=== PATIENT | female | born 1960 | race Caucasian/White ===

== ENCOUNTER 2017-04-23 03:28 | Emergency (ER) | payer MEDICAID ==
[~2017-04-23] VITALS: Ht 157.5 cm; Wt 55.5 kg
[~2017-04-23 03:28] MED LIST: ALBU18HF2 INH; BUSP5TAB3 PO; DULO-31 PO; ESTR1TAB19 PO; GABA600T2 PO; HYDR-565 PO; LORA0.5T PO; MEDR2.5T PO; NABU500T2 PO
[2017-04-23] MEDS ORDERED: ondansetron/PF 4mg/2ml inj IV ONE (03:45)
[2017-04-23] MEDS ORDERED: normal saline 1000ML IV soln IVB ONE (03:45)
[2017-04-23 04:16] LABS: BASOPHILS # (AUTO) 0.1 X10'3 (0-0.2); BASOPHILS % (AUTO) 0.7 % (0-1); EOSINOPHILS # (AUTO) 0.1 X10'3 (0-0.9); EOSINOPHILS % (AUTO) 1.2 % (0-6); HEMATOCRIT 43.4 % (35.0-45.0); LYMPHOCYTES # (AUTO) 0.7 X10'3 (1.1-4.8); LYMPHOCYTES % (AUTO) 6.9 % (21-51); MEAN CORPUSCULAR HEMOGLOBIN 31.4 PG (27.0-31.0); MEAN CORPUSCULAR HGB CONC 34.5 % (33.0-36.5); MEAN PLATELET VOLUME 8.7 FL (7.4-10.4); MONOCYTES # (AUTO) 0.2 X10'3 (0-0.9); MONOCYTES % (AUTO) 2.4 % (2-12); NEUTROPHILS # (AUTO) 8.6 X10'3 (1.8-7.7); NEUTROPHILS % (AUTO) 88.8 % (42-75); PLATELET COUNT 238 X10'3 (140-440); RED BLOOD COUNT 4.77 X10'6 (4.20-5.60); RED CELL DISTRIBUTION WIDTH 13.1 % (11.5-14.5); WHITE BLOOD COUNT 9.7 X10'3 (4.5-11.0)
[2017-04-23 04:29] LABS: ALANINE AMINOTRANSFERASE 28 U/L (12-78); ALBUMIN 4.3 G/DL (3.4-5.0); ALBUMIN/GLOBULIN RATIO 1.2 (1.1-1.5); ALKALINE PHOSPHATASE 40 IU/L (46-116); ANION GAP 15 (8-16); ASPARTATE AMINO TRANSFERASE 28 U/L (10-37); BILIRUBIN,TOTAL 0.7 MG/DL (0.1-1.0); BLOOD UREA NITROGEN 17 MG/DL (7-18); BUN/CREATININE RATIO 23.9 (6.6-38.0); CALCIUM 9.6 MG/DL (8.5-10.1); CHLORIDE 103 MMOL/L (99-107); CREATININE 0.71 MG/DL (0.40-0.90); GLUCOSE 160 MG/DL (70-104); LIPASE 82 U/L (73-393); SODIUM 142 MMOL/L (135-145); TOTAL CARBON DIOXIDE 23.9 MMOL/L (24-32); eGFR 85 ML/MIN
[2017-04-23 04:30] LABS: POTASSIUM 3.6 MMOL/L (3.5-5.1)
[2017-04-23] MEDS ORDERED: ketorolac trometh. 30mg/ml inj. IV ONE (06:20)
[2017-04-23 06:59] LABS: CLARITY,URINE CLEAR (Clear); COLOR,URINE YELLOW (Yellow); GLUCOSE, URINE 100 mg/dl (Neg); KETONES,URINE >=80 mg/dl (Neg); LEUKOCYTE ESTERASE ,URINE NEGATIVE (Neg); NITRITES, URINE NEGATIVE (Neg); OCCULT BLOOD,URINE NEGATIVE (Neg); PH,URINE 8.5 (4.8-8.0); PROTEIN,URINE TRACE mg/dl (Neg); UA COLLECTION TYPE CLN CATCH MIDSTREAM; UROBILINOGEN,URINE 0.2 E.U/dL (0.2-1.0)
[2017-04-23 07:00] LABS: URINE HCG NEGATIVE (NEG)
[2017-04-23 07:25] LABS: RBC,URINE NONE SEEN /HPF (0-2); WBC,URINE NONE SEEN /HPF (0-4)
[2017-04-23 07:26] LABS: BACTERIA,URINE FEW /HPF (Neg); MUCUS STRANDS NONE SEEN /LPF (Neg); SQUAMOUS EPITHELIAL CELL,UR FEW /LPF (FEW)
[2017-04-23 07:34] LABS: HEMOGLOBIN A1C 4.9 % (4.5-6.2)
[2017-04-23] MEDS ORDERED: ONDA4TAB9 PO (08:06)
[2017-04-23 08:27] VITALS: BP 146/90
== END 2017-04-23 08:30 | disposition home or self-care (01) ==
LOC: ER 03:28
DX: K52.9 Noninfective gastroenteritis and colitis, unspecified (principal); R73.9 Hyperglycemia, unspecified; G89.29 Other chronic pain; F17.200 Nicotine dependence, unspecified, uncomplicated; M19.90 Unspecified osteoarthritis, unspecified site; Z86.14 Personal history of Methicillin resistant Staphylococcus aureus infection; Z56.0 Unemployment, unspecified; Z88.0 Allergy status to penicillin; Z88.2 Allergy status to sulfonamides; Z79.899 Other long term (current) drug therapy
CPT/HCPCS: 36415; 74176; 80053; 81001; 81025; 83036; 83690; 85025; 96374; 96375; 99285; J1885; J2405; J7030

== ENCOUNTER 2018-02-04 12:34 | Emergency (ER) | payer MEDICAID ==
[~2018-02-04] VITALS: Ht 160 cm; Wt 56.4 kg
[~2018-02-04 12:34] MED LIST changes: +HYDR-4353 PO; -HYDR-565 PO
[2018-02-04 12:51] VITALS: BP 119/79
[2018-02-04] MEDS ORDERED: HYDROcodone/acetaminophen 10/325mg tab PO ONE (13:10)
[2018-02-04] MEDS ORDERED: ONDA4TAB9 SL (13:44)
[2018-02-04] MEDS ORDERED: ondansetron 4mg rapidly disintigrating tab PO ONE (13:45)
== END 2018-02-04 13:58 | disposition home or self-care (01) ==
LOC: ER 12:34
DX: M79.7 Fibromyalgia (principal); G89.29 Other chronic pain; F41.9 Anxiety disorder, unspecified; F32.9 Major depressive disorder, single episode, unspecified; M19.90 Unspecified osteoarthritis, unspecified site; Z76.0 Encounter for issue of repeat prescription; Z88.2 Allergy status to sulfonamides; Z88.0 Allergy status to penicillin; Z86.14 Personal history of Methicillin resistant Staphylococcus aureus infection; Z56.0 Unemployment, unspecified
CPT/HCPCS: 99283

== ENCOUNTER 2018-05-12 09:31 | Inpatient (IN) | payer MEDICAID ==
[~2018-05-12] VITALS: Ht 160 cm; Wt 59.1 kg
[~2018-05-12 09:31] MED LIST changes: +GABA600T13 PO; -GABA600T2 PO
[2018-05-12] MEDS ORDERED: normal saline 1000ML IV soln IV ONE (10:00)
[2018-05-12] MEDS ORDERED: vancomycin/NS 1 GM ADD-VANTAGE 250 ML IV ONE (10:00)
[2018-05-12] MEDS ORDERED: CefTRIAXone 2gm/D5W 50ml 50 ML IV ONE (10:00)
[2018-05-12] MEDS ORDERED: morphine 4 MG/ML inj SYRINge IV ONE (10:25)
[2018-05-12 10:30] LABS: BASOPHILS # (AUTO) 0.1 X10'3 (0-0.2); BASOPHILS % (AUTO) 0.6 % (0-1); EOSINOPHILS % (AUTO) 0.3 % (0-6); HEMOGLOBIN 14.4 g/dl (12.0-16.0); LYMPHOCYTES # (AUTO) 1.3 X10'3 (1.1-4.8); MEAN CORPUSCULAR HEMOGLOBIN 30.7 PG (27.0-31.0); MEAN CORPUSCULAR HGB CONC 33.6 g/dL (33.0-36.5); MEAN CORPUSCULAR VOLUME 91.5 FL (78-98); MEAN PLATELET VOLUME 8.4 FL (7.4-10.4); MONOCYTES % (AUTO) 9.2 % (2-12); NEUTROPHILS # (AUTO) 8.6 X10'3 (1.8-7.7); NEUTROPHILS % (AUTO) 77.9 % (42-75); PLATELET COUNT 234 X10'3 (140-440); RED BLOOD COUNT 4.69 X10'6 (4.20-5.60); RED CELL DISTRIBUTION WIDTH 12.8 % (11.5-14.5); WHITE BLOOD COUNT 11.1 X10'3 (4.5-11.0)
[2018-05-12 10:41] LABS: ALANINE AMINOTRANSFERASE 31 U/L (12-78); ALBUMIN 4.1 G/DL (3.4-5.0); ALKALINE PHOSPHATASE 48 IU/L (46-116); ANION GAP 11 (8-16); ASPARTATE AMINO TRANSFERASE 21 U/L (10-37); BILIRUBIN,TOTAL 0.7 MG/DL (0.1-1.0); BLOOD UREA NITROGEN 12 MG/DL (7-18); BUN/CREATININE RATIO 14.3 (6.6-38.0); CALCIUM 9.8 MG/DL (8.5-10.1); CHLORIDE 102 MMOL/L (99-107); CREATININE 0.84 MG/DL (0.40-0.90); GLUCOSE 142 MG/DL (70-104); POTASSIUM 3.8 MMOL/L (3.5-5.1); SODIUM 142 MMOL/L (135-145); TOTAL CARBON DIOXIDE 28.6 MMOL/L (24-32); TOTAL PROTEIN 8.1 G/DL (6.4-8.2); eGFR 70 ML/MIN
[2018-05-12] MEDS ORDERED: potassium Cl 20 mEq SR tablet PO PRN ×2 (11:30)
[2018-05-12] MEDS ORDERED: potassium Cl 40MEQ/NS 500ml 500 ML IV PRN ×2 (11:30)
[2018-05-12] MEDS ORDERED: morphine 4 MG/ML inj SYRINge IV PRN (11:30)
[2018-05-12] MEDS ORDERED: mag hydrox/Alum hydrox/simeth 30ml oral suspension PO PRN (11:30)
[2018-05-12] MEDS ORDERED: magnesium 2GM in 50ml NS 50 ML IV PRN (11:30)
[2018-05-12] MEDS ORDERED: magnesium 4gm in 100ml NS 100 ML IV PRN (11:30)
[2018-05-12] MEDS ORDERED: magnesium hydroxide 30ml (MOM) UD suspension PO PRN (11:30)
[2018-05-12] MEDS ORDERED: magnesium Cl slow-release 64mg tablet PO PRN (11:30)
[2018-05-12] MEDS ORDERED: acetaminophen 325mg tablet PO PRN (11:30)
--- NOTE | 2018-05-12 12:00 | NUR ---
Pt transferred to room 2 from triage.
[2018-05-12] MEDS: normal saline 1000ml 1,000 ML IV SCH ×2 (12:16→17:22)
[2018-05-12] MEDS: CefTRIAXone/D5W-Rocephin 1gm 50 ML IV SCH (12:17)
[2018-05-12] MEDS ORDERED: CETI10TA15 PO (12:24)
[2018-05-12] MEDS ORDERED: ALBU18HF2 INH (12:24)
[2018-05-12] MEDS ORDERED: NABU750T2 PO (12:24)
[2018-05-12] MEDS ORDERED: TRAZ-218 PO (12:24)
[2018-05-12] MEDS ORDERED: MULT-933 PO (12:24)
[2018-05-12] MEDS ORDERED: ASPI-611 PO (12:24)
[2018-05-12] MEDS ORDERED: non-formulary drug (Albuterol Sulfate (Ventolin Hfa) 2 PUFFS) INH PRN (14:20)
[2018-05-12] MEDS ORDERED: albuterol 2.5 MG/3 ML nebule NEB PRN (14:40)
--- NOTE | 2018-05-12 15:39 | NUR ---
Received patient from ER.
[2018-05-12] MEDS: HYDROcodone/acetaminophen 10/325mg tab PO PRN ×2 (16:48→20:50)
[2018-05-12 18:00] VITALS: BP 148/76
--- NOTE | 2018-05-12 18:20 | NUR ---
Problems reprioritized. Patient report given, questions answered & plan of care reviewed with Amparo JOHNSON.
--- NOTE | 2018-05-12 18:38 | NUR ---
Patient in room ORTHO 4023. I have received report from ALEX Parker and had the opportunity to ask questions and assume patient care.
[2018-05-12] MEDS ORDERED: vancomycin/NS 1 GM ADD-VANTAGE 250 ML IV SCH (20:00)
[2018-05-12] MEDS: heparin, porcine 5000 units/ml vial SQ SCH (20:06)
[2018-05-12] MEDS: gabapentin 300mg capsule PO SCH (20:06)
[2018-05-12] MEDS ORDERED: non-formulary drug (Gabapentin 1 TAB) PO SCH (21:00)
[2018-05-12] MEDS: traZODone 50mg tablet PO SCH (21:57)
[2018-05-12] MEDS: vancomycin/NS 1 GM ADD-VANTAGE 250 ML IV SCH (21:58)
[2018-05-12 22:00] VITALS: BP 132/86
[2018-05-13] MEDS: HYDROcodone/acetaminophen 10/325mg tab PO PRN ×3 (04:28→17:39)
[2018-05-13] MEDS: normal saline 1000ml 1,000 ML IV SCH ×2 (04:28→17:40)
[2018-05-13 06:00] VITALS: BP 112/64
[2018-05-13 06:41] LABS: BASOPHILS % (AUTO) 0.3 % (0-1); EOSINOPHILS % (AUTO) 0.7 % (0-6); HEMATOCRIT 37.2 % (35.0-45.0); HEMOGLOBIN 12.7 g/dl (12.0-16.0); LYMPHOCYTES % (AUTO) 13.5 % (21-51); MEAN CORPUSCULAR HEMOGLOBIN 31.6 PG (27.0-31.0); MEAN CORPUSCULAR HGB CONC 34.1 g/dL (33.0-36.5); MEAN CORPUSCULAR VOLUME 92.6 FL (78-98); MEAN PLATELET VOLUME 8.3 FL (7.4-10.4); MONOCYTES # (AUTO) 0.6 X10'3 (0-0.9); MONOCYTES % (AUTO) 8.7 % (2-12); NEUTROPHILS # (AUTO) 5.6 X10'3 (1.8-7.7); NEUTROPHILS % (AUTO) 76.8 % (42-75); PLATELET COUNT 183 X10'3 (140-440); RED BLOOD COUNT 4.02 X10'6 (4.20-5.60); RED CELL DISTRIBUTION WIDTH 12.8 % (11.5-14.5); WHITE BLOOD COUNT 7.2 X10'3 (4.5-11.0)
--- NOTE | 2018-05-13 06:44 | NUR ---
Problems reprioritized. Patient report given, questions answered & plan of care reviewed with ALEX Blevins.
[2018-05-13 06:53] LABS: ALANINE AMINOTRANSFERASE 26 U/L (12-78); ALBUMIN/GLOBULIN RATIO 0.9 (1.1-1.5); ALKALINE PHOSPHATASE 37 IU/L (46-116); ANION GAP 8 (8-16); ASPARTATE AMINO TRANSFERASE 19 U/L (10-37); BILIRUBIN,TOTAL 0.4 MG/DL (0.1-1.0); BLOOD UREA NITROGEN 8 MG/DL (7-18); BUN/CREATININE RATIO 11.9 (6.6-38.0); CALCIUM 8.6 MG/DL (8.5-10.1); CHLORIDE 109 MMOL/L (99-107); CREATININE 0.67 MG/DL (0.40-0.90); GLUCOSE 84 MG/DL (70-104); MAGNESIUM 1.7 MG/DL (1.5-2.4); POTASSIUM 3.8 MMOL/L (3.5-5.1); SODIUM 144 MMOL/L (135-145); TOTAL CARBON DIOXIDE 27.2 MMOL/L (24-32); TOTAL PROTEIN 6.3 G/DL (6.4-8.2); eGFR > 90 ML/MIN
[2018-05-13] MEDS: K and/or MAG REPLACEMENT MC SCH (08:00)
[2018-05-13] MEDS ORDERED: non-formulary drug (Multivitamin (One Daily Multivitamin) 1 TAB) PO SCH (08:00)
[2018-05-13] MEDS ORDERED: busPIRone 5mg tablet PO SCH (08:00)
[2018-05-13] MEDS: heparin, porcine 5000 units/ml vial SQ SCH ×2 (08:00→20:00)
[2018-05-13] MEDS ORDERED: non-formulary drug (Aspirin (Aspir 81) 1 TAB) PO SCH (08:00)
[2018-05-13] MEDS: CefTRIAXone/D5W-Rocephin 1gm 50 ML IV SCH (09:17)
[2018-05-13] MEDS: gabapentin 300mg capsule PO SCH ×3 (09:17→20:04)
[2018-05-13] MEDS: duloxetine 30mg CAPSULE.DR PO SCH (09:18)
[2018-05-13] MEDS: cetirizine 10mg tablet PO SCH (09:18)
[2018-05-13] MEDS: aspirin 81mg tablet.DR PO SCH (09:18)
[2018-05-13] MEDS: multivitamins, therapeutics tablet PO SCH (09:19)
[2018-05-13] MEDS: ondansetron/PF 4mg/2ml inj IV PRN (09:48)
[2018-05-13 10:00] VITALS: BP 128/69
[2018-05-13] MEDS: vancomycin/NS 1 GM ADD-VANTAGE 250 ML IV SCH ×2 (11:37→21:45)
[2018-05-13 18:00] VITALS: BP 129/58
--- NOTE | 2018-05-13 18:26 | NUR ---
Patient in room ORTHO 4023. I have received report from Felicity JOHNSON and had the opportunity to ask questions and assume patient care.
[2018-05-13] MEDS ORDERED: diphenhydrAMINE 25mg capsule PO PRN (19:50)
[2018-05-13] MEDS ORDERED: VANCOMYCIN LEVEL IV NR (21:30)
[2018-05-13] MEDS: traZODone 50mg tablet PO SCH (21:44)
[2018-05-13 22:00] VITALS: BP 129/76
[2018-05-14] MEDS: HYDROcodone/acetaminophen 10/325mg tab PO PRN ×2 (03:07→09:12)
[2018-05-14] MEDS: normal saline 1000ml 1,000 ML IV SCH ×2 (04:18→13:27)
[2018-05-14 06:00] VITALS: BP 131/80
--- NOTE | 2018-05-14 06:38 | NUR ---
Problems reprioritized. Patient report given, questions answered & plan of care reviewed with Felicity JOHNSON.
[2018-05-14 06:51] LABS: BASOPHILS # (AUTO) 0.1 X10'3 (0-0.2); BASOPHILS % (AUTO) 0.6 % (0-1); EOSINOPHILS # (AUTO) 0.1 X10'3 (0-0.9); EOSINOPHILS % (AUTO) 0.7 % (0-6); HEMATOCRIT 39.5 % (35.0-45.0); HEMOGLOBIN 13.5 g/dl (12.0-16.0); LYMPHOCYTES # (AUTO) 1.3 X10'3 (1.1-4.8); LYMPHOCYTES % (AUTO) 16.1 % (21-51); MEAN CORPUSCULAR HEMOGLOBIN 31.7 PG (27.0-31.0); MEAN CORPUSCULAR HGB CONC 34.2 g/dL (33.0-36.5); MEAN CORPUSCULAR VOLUME 92.6 FL (78-98); MEAN PLATELET VOLUME 8.3 FL (7.4-10.4); MONOCYTES # (AUTO) 0.7 X10'3 (0-0.9); MONOCYTES % (AUTO) 8.7 % (2-12); NEUTROPHILS # (AUTO) 5.9 X10'3 (1.8-7.7); NEUTROPHILS % (AUTO) 73.9 % (42-75); PLATELET COUNT 194 X10'3 (140-440); RED BLOOD COUNT 4.26 X10'6 (4.20-5.60); RED CELL DISTRIBUTION WIDTH 12.3 % (11.5-14.5)
[2018-05-14 07:02] LABS: ALANINE AMINOTRANSFERASE 28 U/L (12-78); ALBUMIN 3.2 G/DL (3.4-5.0); ALBUMIN/GLOBULIN RATIO 0.9 (1.1-1.5); ALKALINE PHOSPHATASE 44 IU/L (46-116); ANION GAP 10 (8-16); ASPARTATE AMINO TRANSFERASE 19 U/L (10-37); BILIRUBIN,TOTAL 0.4 MG/DL (0.1-1.0); BLOOD UREA NITROGEN 6 MG/DL (7-18); BUN/CREATININE RATIO 8.6 (6.6-38.0); CALCIUM 8.7 MG/DL (8.5-10.1); CHLORIDE 107 MMOL/L (99-107); GLUCOSE 93 MG/DL (70-104); MAGNESIUM 1.8 MG/DL (1.5-2.4); POTASSIUM 3.6 MMOL/L (3.5-5.1); SODIUM 143 MMOL/L (135-145); TOTAL CARBON DIOXIDE 26.5 MMOL/L (24-32); TOTAL PROTEIN 6.8 G/DL (6.4-8.2); eGFR 86 ML/MIN
[2018-05-14] MEDS: heparin, porcine 5000 units/ml vial SQ SCH (08:00)
[2018-05-14] MEDS: K and/or MAG REPLACEMENT MC SCH (08:00)
[2018-05-14] MEDS: cetirizine 10mg tablet PO SCH (08:56)
[2018-05-14] MEDS: aspirin 81mg tablet.DR PO SCH (08:56)
[2018-05-14] MEDS: CefTRIAXone/D5W-Rocephin 1gm 50 ML IV SCH (08:56)
[2018-05-14] MEDS: gabapentin 300mg capsule PO SCH ×2 (08:56→13:29)
[2018-05-14] MEDS: multivitamins, therapeutics tablet PO SCH (08:56)
[2018-05-14] MEDS: duloxetine 30mg CAPSULE.DR PO SCH (08:57)
[2018-05-14] MEDS ORDERED: busPIRone 15mg tablet PO SCH (08:59)
[2018-05-14] MEDS ORDERED: busPIRone 5mg tablet PO SCH (09:30)
[2018-05-14 10:00] VITALS: BP 122/68
[2018-05-14] MEDS ORDERED: vancomycin inj 1,250 MG in normal saline 250ml IV soln 250 ML IV SCH (10:00)
[2018-05-14] MEDS: ondansetron/PF 4mg/2ml inj IV PRN (11:29)
--- NOTE | 2018-05-14 12:01 | NUR ---
PAGER ID: [phone] MESSAGE: Felicity [email or web address] laurence Bhatt in [id number]- I was able to express a very small amt of drainage, I cultured, do you want to send? I think zyvox will need a TAR which will not happen until wed. Can I put pt in iso? If she has active mrsa in wound? Addendum: 05/14/18 at 1209 by Jacqueline Cain RN Per MD cazares to put in iso, she will write rx for generic, linizolid which may be covered without PA. Will send culture. Also mentioned nausea after sandra and ordered to DC it.
[2018-05-14] MEDS ORDERED: LINE600T32 PO (13:25)
[2018-05-14] MEDS ORDERED: DULO-31 PO (13:39)
[2018-05-14] MEDS ORDERED: HYDR-4353 PO (14:12)
[2018-05-14] MEDS ORDERED: lactobacillus rhamnosus 10,000 MMU CELLS/CAPSULE PO SCH (20:00)
[2018-05-15] MEDS ORDERED: VANCOMYCIN LEVEL IV NR (21:30)
== END 2018-05-14 15:07 | disposition home or self-care (01) | DRG 383 ==
LOC: ER 09:33 → ED HOLD 11:27 → ORTHO 4S 15:35
PROVIDERS: ADMIT Internal Medicine; ATTEND Internal Medicine
DX: L03.211 Cellulitis of face (principal); F12.90 Cannabis use, unspecified, uncomplicated; F17.200 Nicotine dependence, unspecified, uncomplicated; F32.9 Major depressive disorder, single episode, unspecified; F41.9 Anxiety disorder, unspecified; G89.29 Other chronic pain; M19.90 Unspecified osteoarthritis, unspecified site; M54.9 Dorsalgia, unspecified; M79.7 Fibromyalgia; Z80.7 Family history of other malignant neoplasms of lymphoid, hematopoietic and related tissues; Z83.3 Family history of diabetes mellitus; Z86.14 Personal history of Methicillin resistant Staphylococcus aureus infection; Z88.0 Allergy status to penicillin; Z88.2 Allergy status to sulfonamides; Z82.49 Family history of ischemic heart disease and other diseases of the circulatory system; Z79.899 Other long term (current) drug therapy; Z71.6 Tobacco abuse counseling
CPT/HCPCS: 36415; 80053; 80202; 83605; 83735; 84145; 85025; 87040; 87070; 87075; 87077; 87186; 94760; 96365; 96375; 99285; G0378; J0696; J1644; J2270; J2405; J3370; J7030; Q0163

== ENCOUNTER 2018-05-16 11:00 | Outpatient (CLI) | payer MEDICAID ==
[~2018-05-16 11:00] MED LIST changes: +ASPI-611 PO; +CETI10TA15 PO; +LINE600T32 PO; -LORA0.5T PO; +MULT-933 PO; -NABU500T2 PO; +NABU750T2 PO; +TRAZ-218 PO
[2018-05-16] MEDS ORDERED: mupirocin 2% ointment 22GM ONE (12:22)
--- NOTE | 2018-05-16 15:00 | NUR ---
Patient ambulated independently from [facility] and was admitted to outpatient wound care for 1st time visit with Rony Ureña MD. Dressing removed and wound cleansed. Patient assessed and medications and medical history reviewed. Dr. Ureña at bedside accompanied by RN. Wound assessed and no debridement was done. Plan of care discussed with patient. Dressings placed per MD orders. Patient instructed on the signs and symptoms of infection and to call the Wound Center if any occur or to go to the ED if we are closed: Increased pain in wound Increase in drainage from the wound Redness in the skin surrounding the wound Bleeding from the wound Temperature of 101 or greater Patient instructed that the weight of their body puts a large amount of pressure on their wounds. This pressure keeps the new tissue from growing and inhibits new blood vessels from forming. Explained that, if they continue to bear weight on a body part that has a wound, the time it takes to heal the wound increases, the wound may get worse or the wound may not heal at all. Patient verbalized understanding of all discharge instructions and plan of care and ambulated independently out to [facility] in stable condition with no sign or symptom of distress at time of discharge. Addendum: 05/16/18 at 1502 by Kourtney Ontiveros RN Amended: Links added.
== END 2018-05-16 12:35 | disposition home or self-care (01) ==
LOC: WOUND CARE 11:00 → EDSTATUS 11:00 → WOUND CARE 12:35
PROVIDERS: ATTEND Surgery
DX: L98.492 Non-pressure chronic ulcer of skin of other sites with fat layer exposed (principal); M19.90 Unspecified osteoarthritis, unspecified site; F41.9 Anxiety disorder, unspecified; F32.9 Major depressive disorder, single episode, unspecified; Z79.899 Other long term (current) drug therapy
CPT/HCPCS: G0463

== ENCOUNTER 2018-05-23 10:19 | Outpatient (CLI) | payer MEDICAID ==
--- NOTE | 2018-05-23 12:15 | NUR ---
Patient ambulated independently from [facility] and was admitted to outpatient wound care for physician visit with Rony Ureña MD. Wound cleansed. Patient assessed for changes in conditions, medications and medical history. 1210 - Dr. Ureña at bedside accompanied by RN. Wound assessed by MD and is declared healed; patient is discharged from the wound clinic to follow up on an as needed basis. Plan of care discussed with patient. No dressings placed per MD orders. Patient instructed on the signs and symptoms of infection and to call the Wound Center if any occur or to go to the ED if we are closed: Increased pain in wound Increase in drainage from the wound Redness in the skin surrounding the wound Bleeding from the wound Temperature of 101 or greater Patient instructed that the weight of their body puts a large amount of pressure on their wounds. This pressure keeps the new tissue from growing and inhibits new blood vessels from forming. Explained that, if they continue to bear weight on a body part that has a wound, the time it takes to heal the wound increases, the wound may get worse or the wound may not heal at all. Patient verbalized understanding of all discharge instructions and plan of care and ambulated independently out to [facility] in stable condition with no sign or symptom of distress at time of discharge.
== END 2018-05-23 12:10 | disposition home or self-care (01) ==
LOC: WOUND CARE 10:19 → EDSTATUS 10:30 → WOUND CARE 12:10
PROVIDERS: ATTEND Surgery
DX: L02.01 Cutaneous abscess of face (principal); M19.90 Unspecified osteoarthritis, unspecified site; G89.29 Other chronic pain; F41.9 Anxiety disorder, unspecified; F32.9 Major depressive disorder, single episode, unspecified; F12.90 Cannabis use, unspecified, uncomplicated; F17.200 Nicotine dependence, unspecified, uncomplicated; Z79.899 Other long term (current) drug therapy
CPT/HCPCS: G0463

== ENCOUNTER 2019-02-19 14:06 | Emergency (ER) | payer MEDICAID ==
[~2019-02-19] VITALS: Ht 160 cm; Wt 58.0 kg
[~2019-02-19 14:06] MED LIST changes: +LINE600T14 PO; -LINE600T32 PO; -TRAZ-218 PO; +TRAZ-251 PO
[2019-02-19 14:29] VITALS: BP 151/78
[2019-02-19] MEDS ORDERED: DOXY100C43 PO (15:31)
[2019-02-19] MEDS ORDERED: TETanus/Pertussis (Acell)/Diphther VAC/PF (Tdap-Adult) 0.5ml syringe IMVAC ONE (15:35)
== END 2019-02-19 15:56 | disposition home or self-care (01) ==
LOC: ER 14:07
DX: L02.512 Cutaneous abscess of left hand (principal); M19.90 Unspecified osteoarthritis, unspecified site; G89.29 Other chronic pain; M79.7 Fibromyalgia; E11.9 Type 2 diabetes mellitus without complications; F41.9 Anxiety disorder, unspecified; F32.9 Major depressive disorder, single episode, unspecified; Z86.14 Personal history of Methicillin resistant Staphylococcus aureus infection; Z56.0 Unemployment, unspecified; Z88.0 Allergy status to penicillin; Z88.2 Allergy status to sulfonamides; Z79.899 Other long term (current) drug therapy; Z79.82 Long term (current) use of aspirin
CPT/HCPCS: 26010; 90471; 90715; 99283

== ENCOUNTER 2019-07-24 11:17 | Emergency (ER) | payer MEDICAID ==
[~2019-07-24] VITALS: Ht 160 cm; Wt 60.0 kg
[2019-07-24 11:22] VITALS: BP 115/72
[2019-07-24] MEDS ORDERED: IBUP-1984 PO (12:19)
[2019-07-24] MEDS ORDERED: ibuprofen tablet 400 MG TABLET PO ONE (12:20)
== END 2019-07-24 12:35 | disposition home or self-care (01) ==
LOC: ER 11:18
DX: M70.42 Prepatellar bursitis, left knee (principal); R60.9 Edema, unspecified; M25.562 Pain in left knee; M19.90 Unspecified osteoarthritis, unspecified site; G89.29 Other chronic pain; F41.9 Anxiety disorder, unspecified; F32.9 Major depressive disorder, single episode, unspecified; Z86.69 Personal history of other diseases of the nervous system and sense organs; Z72.89 Other problems related to lifestyle; Z56.0 Unemployment, unspecified; Z88.5 Allergy status to narcotic agent; Z88.0 Allergy status to penicillin; Z88.2 Allergy status to sulfonamides; Z79.82 Long term (current) use of aspirin; Z79.899 Other long term (current) drug therapy; Y93.84 Activity, sleeping
CPT/HCPCS: 73564; 99283

== ENCOUNTER 2021-05-28 17:21 | Emergency (ER) | payer MEDICAID ==
[~2021-05-28] VITALS: Ht 160 cm; Wt 54.5 kg
[~2021-05-28 17:21] MED LIST changes: +NABU-141 PO; -NABU750T2 PO
[2021-05-28 17:34] VITALS: BP 149/75
[2021-05-28] MEDS ORDERED: acetaminophen 325mg tablet PO ONE ×3 (18:30→18:50)
[2021-05-28] MEDS ORDERED: TETanus/Pertussis (Acell)/Diphther VAC/PF (Tdap-Adult) 0.5ml syringe IMVAC ONE (18:40)
[2021-05-28] MEDS ORDERED: LIDOcaine 1.5% w/epinephrine 1:200,000 5ml ampul IJ ONE (18:40)
[2021-05-28] MEDS ORDERED: LIDOcaine 1% w/EPI 1:100,000 30ml vial (MDV) IJ ONE (18:55)
== END 2021-05-28 20:21 | disposition home or self-care (01) ==
LOC: ER 17:22
DX: S91.114A Laceration without foreign body of right lesser toe(s) without damage to nail, initial encounter (principal); Z88.0 Allergy status to penicillin; Z88.5 Allergy status to narcotic agent; Z88.2 Allergy status to sulfonamides; Z79.899 Other long term (current) drug therapy; W26.8XXA Contact with other sharp object(s), not elsewhere classified, initial encounter; Y93.89 Activity, other specified; Y92.89 Other specified places as the place of occurrence of the external cause; Y99.8 Other external cause status
CPT/HCPCS: 12001; 90471; 90715; 99283; J3490

== ENCOUNTER 2021-06-08 11:14 | Emergency (ER) | payer MEDICAID ==
[~2021-06-08] VITALS: Ht 160 cm; Wt 55.9 kg
[2021-06-08 11:36] VITALS: BP 157/79
--- NOTE | 2021-06-08 12:00 | NUR ---
3 sutures removed between 4th and 5th toes on L foot.
== END 2021-06-08 12:43 | disposition home or self-care (01) ==
LOC: ER 11:14
DX: S91.312D Laceration without foreign body, left foot, subsequent encounter (principal); X58.XXXD Exposure to other specified factors, subsequent encounter; G89.29 Other chronic pain; M54.9 Dorsalgia, unspecified; F41.9 Anxiety disorder, unspecified; F32.9 Major depressive disorder, single episode, unspecified; Z88.0 Allergy status to penicillin; Z88.5 Allergy status to narcotic agent; Z88.2 Allergy status to sulfonamides; Z79.899 Other long term (current) drug therapy
CPT/HCPCS: 73610; 99283

== ENCOUNTER 2022-09-01 17:58 | Emergency (ER) | payer MEDICAID ==
[~2022-09-01] VITALS: Ht 161.3 cm; Wt 56.8 kg
[2022-09-01] MEDS ORDERED: HYDROcodone/acetaminophen 5mg/325mg tablet PO STA (22:04)
[2022-09-01 22:09] VITALS: BP 139/78
== END 2022-09-01 22:12 | disposition home or self-care (01) ==
LOC: ER 17:59
DX: S70.01XA Contusion of right hip, initial encounter (principal); M25.551 Pain in right hip; M19.90 Unspecified osteoarthritis, unspecified site; E11.9 Type 2 diabetes mellitus without complications; Z88.0 Allergy status to penicillin; Z88.5 Allergy status to narcotic agent; Z88.2 Allergy status to sulfonamides; Z56.0 Unemployment, unspecified; W19.XXXA Unspecified fall, initial encounter; Y93.89 Activity, other specified; Y92.89 Other specified places as the place of occurrence of the external cause; Y99.8 Other external cause status
CPT/HCPCS: 73502; 99284

== ENCOUNTER 2023-05-12 06:48 | Outpatient (CLI) | payer MEDICAID ==
[~2023-05-12] VITALS: Ht 161.3 cm; Wt 56.7 kg
[2023-05-12] MEDS: albuterol 2.5 MG/3 ML nebule NEB ONE (07:47)
[2023-05-12 07:49] VITALS: PULSE 67; RESP 15; O2SAT 98
== END 2023-05-12 23:59 | disposition home or self-care (01) ==
LOC: RT 06:48
PROVIDERS: ATTEND Registered Nurse
DX: J44.9 Chronic obstructive pulmonary disease, unspecified (principal)
CPT/HCPCS: 94060; 94760

== ENCOUNTER 2024-03-05 23:24 | Emergency (ER) | payer MEDICAID ==
[~2024-03-05] VITALS: Ht 160 cm; Wt 52.1 kg
[~2024-03-05 23:24] MED LIST changes: +GABA-1405 PO; -GABA600T13 PO
[2024-03-05 23:59] LABS: BASOPHILS # (AUTO) 0.1 X10'3 (0-0.2); BASOPHILS % (AUTO) 0.6 % (0-1); EOSINOPHILS % (AUTO) 0 % (0-6); HEMATOCRIT 37.5 % (35.0-45.0); HEMOGLOBIN 13.1 g/dl (12.0-16.0); LYMPHOCYTES # (AUTO) 0.8 X10'3 (1.1-4.8); LYMPHOCYTES % (AUTO) 8.1 % (21-51); MEAN CORPUSCULAR HEMOGLOBIN 31.8 PG (27.0-31.0); MEAN CORPUSCULAR HGB CONC 34.8 g/dL (33.0-36.5); MEAN CORPUSCULAR VOLUME 91.5 FL (78-98); MEAN PLATELET VOLUME 8.6 FL (7.4-10.4); MONOCYTES # (AUTO) 0.3 X10'3 (0-0.9); MONOCYTES % (AUTO) 2.9 % (2-12); NEUTROPHILS # (AUTO) 8.7 X10'3 (1.8-7.7); NEUTROPHILS % (AUTO) 88.4 % (42-75); PLATELET COUNT 268 X10'3 (140-440); RED CELL DISTRIBUTION WIDTH 12.2 % (11.5-14.5); WHITE BLOOD COUNT 9.9 X10'3 (4.5-11.0)
[2024-03-06 00:24] LABS: ALANINE AMINOTRANSFERASE 29 U/L (12-78); ALBUMIN 4.3 G/DL (3.4-5.0); ALBUMIN/GLOBULIN RATIO 1.2 (1.1-1.5); ALKALINE PHOSPHATASE 56 IU/L (46-116); ANION GAP 14 (8-16); ASPARTATE AMINO TRANSFERASE 24 U/L (10-37); BILIRUBIN,TOTAL 0.6 MG/DL (0.1-1.0); BLOOD UREA NITROGEN 10 MG/DL (7-18); BUN/CREATININE RATIO 11.1 (10.0-20.0); CALCIUM 9.8 MG/DL (8.5-10.1); CHLORIDE 102 MMOL/L (99-107); GLUCOSE 187 MG/DL (70-104); LIPASE 19 U/L (16-77); POTASSIUM 3.3 MMOL/L (3.5-5.1); SODIUM 137 MMOL/L (135-145); TOTAL CARBON DIOXIDE 21.1 MMOL/L (24-32); TOTAL PROTEIN 7.9 G/DL (6.4-8.2); eCRCL 53 ML/MIN; eGFR 63 ML/MIN
[2024-03-06 02:13] LABS: URINE HCG NEGATIVE (NEG)
[2024-03-06 02:14] LABS: BILIRUBIN,URINE NEGATIVE (Neg); CLARITY,URINE CLEAR (Clear); COLOR,URINE YELLOW (Yellow); GLUCOSE, URINE 500 mg/dl (Neg); KETONES,URINE 40 mg/dl (Neg); LEUKOCYTE ESTERASE ,URINE NEGATIVE (Neg); NITRITES, URINE NEGATIVE (Neg); OCCULT BLOOD,URINE SMALL (Neg); PH,URINE >=9.0 (4.8-8.0); PROTEIN,URINE TRACE mg/dl (Neg); UROBILINOGEN,URINE 0.2 E.U/dL (0.2-1.0)
[2024-03-06 02:19] LABS: UA COLLECTION TYPE CLN CATCH MIDSTREAM
[2024-03-06 02:20] LABS: BACTERIA,URINE NONE SEEN /HPF (Neg); SQUAMOUS EPITHELIAL CELL,UR FEW /LPF (FEW); WBC,URINE NONE SEEN /HPF (0-4)
[2024-03-06] MEDS: ketorolac trometh 15mg/ml vial 15 MG/ML ML IV ONE (02:51)
[2024-03-06] MEDS: metoclopramide 5 mg/ml inj IV ONE (02:52)
[2024-03-06] MEDS: normal saline 1000ML IV soln IVB ONE (02:53)
[2024-03-06] MEDS: diphenhydrAMINE 50 mg/ml inj IV ONE (02:53)
[2024-03-06 03:27] VITALS: BP 130/59; PULSE 79; RESP 21; TEMP 97.8; O2SAT 99
[2024-03-06 03:42] LABS: URINE AMPHETAMINE SCREEN NEGATIVE (Neg); URINE BARBITUATE SCREEN NEGATIVE (Neg); URINE BENZODIAZEPINES SCREEN NEGATIVE (Neg); URINE CANNABINOID SCREEN POSITIVE (Neg); URINE COCAINE SCREEN NEGATIVE (Neg); URINE METHADONE SCREEN NEGATIVE (Neg); URINE OPIATE SCREEN POSITIVE (Neg); URINE PHENCYCLIDINE SCREEN NEGATIVE (Neg)
== END 2024-03-06 03:36 | disposition home or self-care (01) ==
LOC: ER 23:25
DX: R10.32 Left lower quadrant pain (principal); F10.90 Alcohol use, unspecified, uncomplicated; M19.90 Unspecified osteoarthritis, unspecified site; Z88.0 Allergy status to penicillin; F32.A Depression, unspecified; F41.9 Anxiety disorder, unspecified; F17.210 Nicotine dependence, cigarettes, uncomplicated; M79.7 Fibromyalgia; Z88.2 Allergy status to sulfonamides; Z88.5 Allergy status to narcotic agent; Z79.82 Long term (current) use of aspirin
CPT/HCPCS: 36415; 74176; 80053; 80305; 81001; 81025; 83690; 85025; 96361; 96374; 96375; 99285; J1200; J1885; J2765; J7030

== ENCOUNTER 2025-01-10 10:55 | Day surgery (SDC) | payer MEDICAID ==
[~2025-01-10] VITALS: Ht 160 cm; Wt 53.6 kg
[2025-01-10] VITALS (8 sets, daily range): BP systolic 92–134; BP diastolic 60–73; PULSE 75–97; RESP 13–22; TEMP 98.5; O2SAT 97–100
[~2025-01-10 10:55] MED LIST changes: -ALBU18HF2 INH; +ALEN70TA37 PO; -ASPI-611 PO; +ATOR-2 PO; -BUSP5TAB3 PO; +CHOL500050 PO; -DULO-31 PO; +DULO60CA65 PO; -ESTR1TAB19 PO; -GABA-1405 PO; +HYDR-3964 PO; -HYDR-4353 PO; -LINE600T14 PO; -MEDR2.5T PO; -MULT-933 PO; -NABU-141 PO; -TRAZ-251 PO; +ringers solution, lacted 1,000 ML IV SCH; +simethicone 40mg/0.6ml oral drops 15ml ONE
[2025-01-10] MEDS ORDERED: propofol inj 20 ML IV ONE (12:13)
[2025-01-10] MEDS ORDERED: midazolam 1 mg/ML 2ml injection ONE (12:13)
[2025-01-10] MEDS ORDERED: fentaNYL/PF 50MCG/1 ML 2ML syringe ONE (12:13)
== END 2025-01-10 13:44 | disposition home or self-care (01) ==
LOC: GI LAB 10:55
PROVIDERS: ATTEND Internal Medicine Gastroenterology
DX: Z12.11 Encounter for screening for malignant neoplasm of colon (principal); E78.5 Hyperlipidemia, unspecified; F32.A Depression, unspecified; F17.210 Nicotine dependence, cigarettes, uncomplicated; J45.909 Unspecified asthma, uncomplicated; M81.0 Age-related osteoporosis without current pathological fracture; Z98.82 Breast implant status; Z98.890 Other specified postprocedural states; Z82.49 Family history of ischemic heart disease and other diseases of the circulatory system; Z84.19 Family history of other disorders of kidney and ureter; Z83.3 Family history of diabetes mellitus; Z82.3 Family history of stroke; Z88.0 Allergy status to penicillin; Z88.2 Allergy status to sulfonamides; Z88.8 Allergy status to other drugs, medicaments and biological substances
CPT/HCPCS: 45378; J2250; J2704; J3010; J7120; Z7512; A4620